=== PATIENT | female | born 1940 | race Caucasian/White ===

== ENCOUNTER 2025-02-23 13:07 | Outpatient (CLI) | payer MEDICARE, OTHER ==
--- NOTE | 2025-02-23 15:17 | RADIOLOGY REPORT ---
CLINICAL INFORMATION: SPONDYLOSIS W/O MYELOPATHY OR RADICULOPATHY, LUMBAR REGION. TECHNIQUE: Multisequence multiplanar MRI images of the lumbar spine were obtained without contrast. COMPARISON: None INTERPRETATION: Straightening of the normal lumbar lordosis. Mild retrolisthesis of L1 on L2. There is compression fracture involving the L3 vertebral body with up to 30% loss of height at its right lateral aspect and marrow edema, likely acute or subacute compression fracture. There is mild marrow edema at the left lateral aspect of the L2 vertebral body, without associated deformity to suggest fracture, possible contusion or modic type 1 endplate changes. Posterior elements are intact. There are mild Modic type 1 endplate changes at L1-L2. Modic type 2 endplate changes at L5-S1. Visualized spinal cord and cauda equina are within normal limits. The conus medullaris is appropriate in signal at the L1 level. Moderate fatty atrophy of the paraspinal musculature in the lower lumbosacral spine. L1-L2: Disc desiccation with severe disc space narrowing and diffuse disc bulge with superimposed right subarticular / foraminal disc extrusion extending caudally up to 8.5 mm in craniocaudal dimension and measuring up to 7 mm in AP dimension and 8 mm in transverse dimension, effacing the right lateral recess, and likely impinging the exiting right L1 nerve root as well as the traversing right L2 nerve root. There is moderate spinal canal stenosis with crowding of the cauda equina. There is partial effacement of the left lateral recess due to the disc bulge. Facet hypertrophy with severe bilateral neural foraminal stenoses. L2-L3: Disc desiccation with moderate disc space narrowing and diffuse disc bulge causing moderate to severe spinal canal stenosis, with severe crowding of the cauda equina. Superimposed left foraminal disc extrusion extending up to 12 mm in craniocaudal dimension, 6 mm in AP dimension, and 11 mm in transverse dimension, effacing the left lateral recess, impinging the exiting left L2 nerve root and contributing to severe left neural foraminal stenosis. There is moderate to severe right neural foraminal stenosis secondary to facet hypertrophy and mild encroachment of the right neural foramen by the disc bulge. Small bilateral facet joint effusions. L3-L4: Disc desiccation with mild disc space narrowing and diffuse disc bulge with concomitant facet hypertrophy and infolding of the ligamentum flavum contributing to moderate to severe spinal canal stenosis and effacement of the lateral recesses. Facet hypertrophy and encroachment of the neural foramina by the disc bulge contributes to moderate to severe bilateral neural foraminal stenoses. Small to moderate bilateral facet joint effusions. L4-L5: Disc desiccation with diffuse disc bulge causing mild spinal canal stenosis. Facet hypertrophy and encroachment of the neural foramina by the disc bulge contributes to moderate bilateral neural foraminal stenoses. L5-S1: Disc desiccation with moderate to severe disc space narrowing. Diffuse disc bulge mildly flattening the ventral aspect of the thecal sac. No significant spinal canal stenosis. Facet hypertrophy with severe right and moderate to severe left neural foraminal stenoses. Small right facet joint eff usion. Suspected impingement of the exiting right L5 nerve root due to the neural foraminal stenosis. IMPRESSION: 1. Compression fracture of the L3 vertebral body with up to 30% loss of height at its Right lateral aspect, likely acute or subacute given the marrow edema. 2. Degenerative disc disease and facet disease with associated spinal canal, subarticular, and neural foraminal stenoses as detailed above. 3. Straightening of the normal lumbar lordosis with mild retrolisthesis of L1 on L2. 4. Additional findings as detailed above.
== END 2025-02-23 23:59 | disposition home or self-care (01) ==
LOC: MRI02 13:07
PROVIDERS: ATTEND Family Medicine Sports Medicine
DX: S32.030A Wedge compression fracture of third lumbar vertebra, initial encounter for closed fracture (principal); M54.50 Low back pain, unspecified; M77.9 Enthesopathy, unspecified; M47.27 Other spondylosis with radiculopathy, lumbosacral region; M48.07 Spinal stenosis, lumbosacral region; M51.17 Intervertebral disc disorders with radiculopathy, lumbosacral region; X58.XXXA Exposure to other specified factors, initial encounter; Y93.89 Activity, other specified; Y92.89 Other specified places as the place of occurrence of the external cause; Y99.8 Other external cause status
CPT/HCPCS: 72148